=== PATIENT | male | born 1980 | race Caucasian/White ===

== ENCOUNTER 2021-12-29 12:16 | Emergency (ER) | payer OTHER ==
[2021-12-29] MEDS ORDERED: KETOROLAC 15 MG/ML VIAL IVP STA (12:44)
[2021-12-29 12:59] LABS: BILIRUBIN,URINE NEGATIVE (NEGATIVE); GLUCOSE, URINE (UA) NEGATIVE (NEGATIVE); KETONES,URINE (UA) NEGATIVE (NEGATIVE); LEUKOCYTE ESTERASE, URINE NEGATIVE (NEGATIVE); NITRITE,URINE NEGATIVE (NEGATIVE); OCCULT BLOOD,URINE NEGATIVE (NEGATIVE); PROTEIN,URINE NEGATIVE (NEGATIVE); UROBILINOGEN,URINE 0.2 (NORMAL) E.U./dL (NORMAL)
[2021-12-29 13:04] LABS: CLARITY,URINE CLEAR (CLEAR)
[2021-12-29 13:08] LABS: BASOPHILS # (AUTO) 0.1 10^3/uL (0.0-0.1); EOSINOPHILS # (AUTO) 0.2 10^3/uL (0.0-0.7); EOSINOPHILS % (AUTO) 2.4 %; HCT - HEMATOCRIT 41.8 % (42.0-52.0); HGB - HEMOGLOBIN 14.3 g/dL (14.0-18.0); LYMPHOCYTES # (AUTO) 2.6 10^3/uL (1.5-3.5); MEAN CORPUSCULAR HEMOGLOBIN 28.5 pg (27.0-31.0); MEAN CORPUSCULAR HGB CONC 34.2 g/dL (32.0-36.0); MEAN CORPUSCULAR VOLUME 83.4 fL (80.0-94.0); MEAN PLATELET VOLUME 9.1 fL (7.4-11.4); MONOCYTES # (AUTO) 0.6 10^3/uL (0.0-1.0); MONOCYTES % (AUTO) 8.5 %; NEUTROPHILS # (AUTO) 3.4 10^3/uL (1.5-6.6); NEUTROPHILS % (AUTO) 49.2 %; PLT - PLATELET COUNT 237 10^3/uL (130-450); RED BLOOD COUNT 5.01 10^6/uL (4.70-6.10); RED CELL DISTRIBUTION WIDTH 12.6 % (12.0-15.0); WHITE BLOOD COUNT 6.9 x10^3/uL (4.8-10.8)
[2021-12-29 13:19] LABS: ALBUMIN 4.2 g/dL (3.2-5.5); ALBUMIN/GLOBULIN RATIO 1.3 (1.0-2.2); BILIRUBIN,TOTAL 0.3 mg/dL (0.2-1.0); CALCIUM 9.4 mg/dL (8.5-10.3); CREATININE 0.8 mg/dL (0.6-1.2); POTASSIUM 4.1 mmol/L (3.5-5.0); TOTAL PROTEIN 7.5 g/dL (6.7-8.2)
--- NOTE | 2021-12-29 15:10 | CT Report ---
PROCEDURE: Abdomen/Pelvis W INDICATIONS: GENERALIZED LOWER ABD PAIN X2 WEEKS CONTRAST: IV CONTRAST: Optiray 320 ml: 100 PO CONTRAST: *NO PO CONTRAST TECHNIQUE: After the administration of intravenous contrast, 5 mm thick sections acquired from the diaphragms to the symphysis. 5 mm thick coronal and sagittal reformats were acquired. For radiation dose reducti on, the following was used: automated exposure control, adjustment of mA and/or kV according to april ent size. COMPARISON: None. FINDINGS: Image quality: Excellent. ABDOMEN: Lung bases: Lung bases are clear. Heart size is normal. Small hiatal hernia. Solid organs: Liver and spleen are normal in size and enhancement. Mild hepatic steatosis. Gallblad gus is normal. Biliary system is non dilated. Pancreas enhances normally. No adrenal nodules. Kid neys demonstrate normal size and enhancement, without hydronephrosis. Peritoneum and bowel: Bowel loops demonstrate normal wall thickness and caliber. No free fluid or a ir. Nodes and vessels: No retroperitoneal or mesenteric adenopathy by size criteria. Aorta and inferior vena cava are normal in size. Miscellaneous: No ventral hernias. PELVIS: Genitourinary: Bladder wall thickness is normal. Miscellaneous: No inguinal hernias or adenopathy. Bones: No suspicious bony lesions. No vertebral body compression fractures. IMPRESSION: 1. No acute interval abdominal or pelvic abnormalities. 2. Hepatic steatosis. Reviewed by: Shonda Michele MD on 12/29/2021 3:08 PM PDT Approved by: Shonda Michele MD on 12/29/2021 3:08 PM PDT Station ID: [id number]
--- NOTE | 2021-12-29 15:14 | ED Physician Documentation ---
PD HPI ABD PAIN - Stated complaint Stated Complaint: BELLY TENDER/PX - Chief complaint Chief Complaint: Abd Pain - History obtained from History obtained from: Patient - History of Present Illness Timing - onset: How many weeks ago (2) - Additional information Additional information: 41-year-old male with no reported past medical history presents by private veh icle for 2 weeks of lower abdominal pain. Pain is cramping, intermittent, worsens with palpation, occasionally radiates into his testicle. No associated nausea or vomiting. Patient states that he is on the wait list to see a GI doctor because of chronic stomach issues, and he states that Crohn's and ulcerative colitis from his family, however this is different from his chronic stomach issues. Review of Systems Ten Systems: 10 systems reviewed and negative Constitutional: denies: Fever, Chills Cardiac: denies: Chest pain / pressure, Palpitations, Calf pain Respiratory: denies: Dyspnea, Cough, Wheezing GI: reports: Abdominal Pain. denies: Nausea, Vomiting, Constipation, Diarrhea : denies: Dysuria, Testicular pain, Testicular mass PD PAST MEDICAL HISTORY - Past Medical History Past Medical History: No - Present Medications Home Medications: Ambulatory Orders Medication Instructions Recorded Confirmed No Known Home Medications 12/29/21 12/29/21 - Allergies Allergies/Adverse Reactions: Allergies Allergy/AdvReac Type Severity Reaction Status Date / Time No Known Drug Allergies Allergy Verified 12/29/21 12:26 PD ED PE NORMAL - Vitals Vital signs reviewed: Yes - General General: Alert and oriented X 3, No acute distress, Well developed/nourished - HEENT HEENT: Atraumatic, PERRL, EOMI - Cardiac Cardiac: RRR, No murmur, Strong equal pulses - Respiratory Respiratory: No respiratory distress, Clear bilaterally - Abdomen Abdomen: Soft, Non distended, No organomegaly, Other (suprapubic abdominal TTP without rebounr or guarding) - Male Male : 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, Other (normal penis, normal testicles, no hernia, cremasteric reflex intact bilaterally) - Back Back: No CVA TTP, No spinal TTP - Derm Derm: Normal color, Warm and dry, No rash - Extremities Extremities: No deformity, No tenderness to palpate, Normal ROM s pain - Neuro Neuro: Alert and oriented X 3, health director 2-12 intact, No motor deficit, No sensory deficit, Normal speech - Psych Psych: Normal mood, Normal affect Results - Vitals Vitals: Vital Signs - 24 hr 12/29/21 12/29/21 12/29/21 12:26 12:30 14:53 Temperature 36.2 C L 36.5 C 36.5 C Heart Rate 80 80 72 Respiratory 18 18 16 Rate Blood Pressure 142/92 H 142/92 H 140/93 H O2 Saturation 98 98 98 12/29/21 15:23 Temperature Heart Rate 67 Respiratory 19 Rate Blood Pressure 125/80 O2 Saturation 99 Oxygen O2 Source Room air - Labs Labs: Laboratory Tests 12/29/21 12/29/21 12/29/21 12:38 13:00 13:00 WBC 6.9 RBC 5.01 Hgb 14.3 Hct 41.8 L MCV 83.4 MCH 28.5 MCHC 34.2 RDW 12.6 Plt Count 237 MPV 9.1 Neut # (Auto) 3.4 Lymph # (Auto) 2.6 Dade # (Auto) 0.6 Eos # (Auto) 0.2 Baso # (Auto) 0.1 Absolute Nucleated RBC 0.00 Nucleated RBC % 0.0 Sodium 137 Potassium 4.1 Chloride 103 Carbon Dioxide 26 Anion Gap 8.0 BUN 13 Creatinine 0.8 Estimated GFR (MDRD) 108 Glucose 95 Calcium 9.4 Total Bilirubin 0.3 AST 25 ALT 32 Alkaline Phosphatase 59 Total Protein 7.5 Albumin 4.2 Globulin 3.3 Albumin/Globulin Ratio 1.3 Lipase 30 Urine Color YELLOW Urine Clarity CLEAR Urine pH 7.0 Ur Specific [place] 1.010 Urine Protein NEGATIVE Urine Glucose (UA) NEGATIVE Urine Ketones NEGATIVE Urine Occult Blood NEGATIVE Urine Nitrite NEGATIVE Urine Bilirubin NEGATIVE Urine Urobilinogen 0.2 (NORMAL) Ur Leukocyte Esterase NEGATIVE Ur Microscopic Review NOT INDICATED Urine Culture Comments NOT INDICATED PD MEDICAL DECISION MAKING - ED course Complexity details: reviewed results, re-evaluated patient, considered differential, d/w patient ED course: Well-appearing male presenting for 2 weeks of abdominal pain. Abdomen is soft, he does have reproducible tenderness over the lower quadrants of his abdomen, particularly the suprapubic region. Hemodynamically stable, no evidence of hernia or testicular etiology of symptoms. Laboratory work was essentially unremarkable, no contributing cause for his symptoms identified. CT imaging also negative for acute findings, patient reports previous history of appendectomy. Patient was counseled on his lab and imaging findings, emphasized importance of following up with GI as previously scheduled. Patient stated that he would try to call his GI doctor's office to move up his appointment. Departure - Departure Disposition: 01 Home, Self Care Clinical Impression: Abdominal pain Condition: Stable Instructions: Abdominal Pain Comments: I do not know the cause of your abdominal pain, your labs and your imaging today were negative for obvious findings. This means it is even more important that you follow-up with your GI doctor as previously scheduled for your scopes Discharge Date/Time: 12/29/21 15:24
[2021-12-29 15:24] VITALS: BP 125/80
[2021-12-29] MEDS ORDERED: iohexoL-300 100 ML VIAL IVP ONE (15:29)
[2021-12-29] MEDS ORDERED: iohexoL-300 100 ML VIAL ONE (15:50)
== END 2021-12-29 15:24 | disposition home or self-care (01) ==
LOC: ED 12:16
DX: R10.31 Right lower quadrant pain (principal); R10.32 Left lower quadrant pain; K76.0 Fatty (change of) liver, not elsewhere classified; Z90.49 Acquired absence of other specified parts of digestive tract; Z83.79 Family history of other diseases of the digestive system
CPT/HCPCS: 36415; 74177; 80053; 81003; 83690; 85025; 96374; 99284; Q9967; 81001; 87086

== ENCOUNTER 2022-04-19 10:34 | Outpatient (CLI) | payer OTHER ==
--- NOTE | 2022-04-19 11:31 | SLEEP CARE CONSULTATION ---
Information from patient questionnaire entered by Carmel Awad. I have reviewed and concur with the information entered by Carmel Awad. This document represents the service I personally performed and the decisions made by me, Lauryn Garrido ARNP. History of Present Illness Service Date and Time: 04/19/2022 1034 Reason for Visit: New patient Chief Complaint: reports: Unrefreshed sleep, Snoring, Fatigue, Frequent awakenings at night Date of Onset: 5 years Usual bedtime: between 8-10pm Time it takes to fall asleep: 20min or so Snores at night: Yes Observed to quit breathing while asleep: No Sleeps alone due to snoring: Yes Number of times waking at night: 3-6 Reasons for waking at night: reports: Gasping for air (wakes up feeling like he can't get a full breath with panic attacks), Other (unknown reason, noise, not sure sometimes panic attacks). denies: Choking, Snoring Toss, Turn, or Twitch while sleeping: Yes Recalls having dreams: Yes Usually gets out of bed at: 5am; weekends [id number] AM Feels refreshed in the morning: No Morning headache: No Sleepy or fatigued during the day: Yes Ever fallen asleep while driving: No Takes day naps: Yes (tries to get one once a day, but does not always happen; for 2 hours) Dreams during day naps: No Prior sleep studies: No Additional HPI information: I had the pleasure of seeing NORI TADEO today regarding the possibility of him having a sleep disorder. His current complaints are fatigue, frequent night awakenings, unrefreshed sleep and snoring. He states that he sleeps separate rooms from his because he is getting up frequently at night and this disturbs her sleep. She has told him that he snores loudly. He normally wakes up feeling tired in the morning. He states he has had times when he wakes up feeling like he is not getting enough air. This only seems to happen when he wakes up in panic attack and subsides after taking his hydroxyzine. He states most of the time he is not sure what is waking him up. He is tired throughout the day and tries to take a nap every day. His does not like him napping though, so he does not always get one. He also has six children with multiple activities which keeps him busy. He states his sister has sleep apnea and uses a "mask". - Parasomnia Symptoms Ever been unable to move upon waking from sleep: No Walks in sleep: No Talks in sleep: No Ever acted out dreams in sleep: No Ever felt weak in the knees when startled or emotional: No Bothered by creepy, crawly, restless sensations in legs: No Problems with memory or concentration: Yes (concentration is hard; thinks of a "million" things at night) Subjective Initial [place]ra Sleepiness Scale score: 12 (04/19/22) Past Medical History Past Medical History: reports: Anxiety, Depression, Other (Celiac 1 trait, gluten sensitive; heartburn (getting upper endoscopy in May)) Social History 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 Patient is and lives in [place]. Have you smoked in the past 12 months: No Years of smokin (socially) Quit date: 2008 Alcohol use: Yes Alcohol amount and frequency: 5 drinks, 2x/week Caffeine use: No Family History Family history of sleep disordered breathing: Yes Family Hx Sleep Apnea: Father: Snoring, Sibling: Snoring, Sleep apnea - Treated Allergies and Home Medications Known drug allergies: No Drug allergies reviewed: Yes (NKDA) Home medication list reviewed: Yes Allergy and home medication list: Medications: Lexapro 20 mg Hydroxyzine, prn Review of Systems Weight gain over past 5 years: 45 Weight loss over past 5 years: 0 Cardiovascular: denies: high blood pressure Respiratory: reports: shortness of breath Gastrointestinal: reports: heartburn, diarrhea, abdominal pain Neurological: denies: headaches Ear/Nose/Throat: reports: dry mouth/throat (wakes up with couple times a week), wisdom teeth removed. denies: tonsillectomy Endocrine: reports: increased appetite. denies: thyroid disease Physical Exam Vital signs obtained and entered by: George AWAD MA Blood Pressure: 120/68 (right arm ) Cuff size: regular Heart Rate: 96 O2 Saturation: 65 Height: 5 ft 4 in Weight: 237 lb Body Mass Index: 40.6 BMI Classification: Morbidly Obese Neck circumference: 19 (inches) Nostrils: patent to airflow Mouth and throat: narrow oropharynx Soft palate: long Hard palate: normal Uvula: normal Uvula visualization: 25% Mallampati Class III Tongue: enlarged in size with teeth engle on lateral edges Tonsils: 1+ Neck: normal w/o lymphadenopathy or thyromegaly Heart: regular rate and rhythm Lungs: clear bilaterally Impression and Plan 1. Suspected Obstructive Sleep Apnea-Hypopnea Syndrome, as suggested by a history of loud and irregular snoring, observed cessation of breath while asleep, gasping or choking in sleep, frequent awakening during the night, unrefreshed sleep, cognitive impairment, and excessive daytime sleepiness. Narrow oropharynx and obesity are common predisposing factors for obstructive sleep apnea-hypopnea syndrome. I recommend proceeding to polysomnography to confirm the diagnosis and to assess severity. If the patient has significant sleep disordered breathing, a manual CPAP titration study will also be performed to find the optimal treatment pressure. I informed the patient of what the sleep studies involve and after some discussion, obtained agreement to proceed. The pathophysiology of obstructive sleep apnea-hypopnea syndrome was discussed with the patient and health risks of cardiovascular and cerebrovascular disease if not treated. Risks of drowsy driving discussed in detail and patient advised to avoid long distance driving and to rod puller at the first sign of drowsiness. Patient agreed to plan. * Schedule polysomnography * Avoid long distance driving or driving when feeling sleepy. * Avoid alcohol, sedative and muscle relaxant around bedtime. * Attempt to lose weight. * Review instructions provided by trained office staff on how to prepare for the sleep study. * Return for follow-up after sleep study completed. Counseling Topics: Weight loss health impact Visit Type: In Office Time Spent with Patient (minutes): 31 Provider Statement: I spent 100% of the Face to Face Visit with the patient with greater than 50% spent counseling the patient and coordination of care.
[2022-04-19 11:32] VITALS: BP 120/68
== END 2022-04-19 10:35 | disposition home or self-care (01) ==
LOC: SC 10:34
PROVIDERS: ATTEND Nurse Practitioner Family
DX: R06.83 Snoring (principal); G47.8 Other sleep disorders; G47.10 Hypersomnia, unspecified; R53.83 Other fatigue; F32.A Depression, unspecified; E66.01 Morbid (severe) obesity due to excess calories; Z68.41 Body mass index [BMI] 40.0-44.9, adult; Z87.891 Personal history of nicotine dependence
CPT/HCPCS: 99203; 99212

== ENCOUNTER 2022-05-07 14:19 | Outpatient (CLI) | payer OTHER | END 2022-05-07 14:20 | disposition home or self-care (01) | LOC: SC 14:19 | PROVIDERS: ATTEND Nurse Practitioner Family | DX: F32.A Depression, unspecified (principal); G47.33 Obstructive sleep apnea (adult) (pediatric); R09.02 Hypoxemia | CPT/HCPCS: 95806 ==

== ENCOUNTER 2022-05-17 10:37 | Outpatient (CLI) | payer OTHER ==
[2022-05-17 11:29] VITALS: BP 118/68
--- NOTE | 2022-05-17 11:29 | SLEEP CARE CONSULTATION ---
Information from patient questionnaire entered by Cecy Crowley. I have reviewed and concur with the information entered by Cecy Crowley. This document represents the service I personally performed and the decisions made by , Lauryn Garrido ARNP. History of Present Illness Service Date and Time: 05/17/2022 1037 Initial [place] Sleepiness Scale score: 12 (04/19/22) Current Redford Sleepiness Scale score: 11 (05/17/22) Additional HPI information: NORI TADEO returns for follow up and results of the recently performed home sleep study. I explained the pathophysiology behind obstructive sleep apnea. We then spent quite a bit of time discussing different treatment options. For mild obstructive sleep apnea, surgery and oral appliance are alternatives to nasal CPAP therapy but in moderate or severe cases, nasal CPAP is the most effective and reliable treatment. Because apnea is primarily in supine position, then positional management therapy could be effective. Methods discussed such as positioning with pillows to prevent supine sleep. I reviewed the impact of weight changes on sleep apnea and strongly recommended losing weight. After some discussion, the patient opted to go with the nasal CPAP therapy. Nasal autoCPAP set at 4-15 cmH20 will be ordered with rationale explained. A manual titration study will be ordered if unable to find optimal pressure with office adjustments. I explained how CPAP machine works and what to expect when using the machine. Using CPAP every night in order to get used to it was emphasized. Patient advised to put CPAP mask on before getting into bed so as not to fall asleep wit hout CPAP. To assist acclimation to CPAP use, it could also be used for a short time during day while reading or watching TV. The patient was instructed to call the CPAP supplier to discuss any mechanical problem that may occur. If the mask given is uncomfortable or is difficult to keep on through the night even with adjustment, contact the CPAP supplier as many will replace with another mask sty le if notified before 30 days. If snoring or perceives is not getting enough air or too much air from the machine, notify this office. Patient counseled not drink alcohol less than 4 hours before bedtime as it can increase snoring and apnea. Patient was cautioned about risks of drowsy driving until sleepiness symptoms resolve. Patient denies drowsy driving. Sleep Study - Results Type of Sleep Study: Home sleep study (COMPLETED 05/07/22) Prior sleep studies: No Polysomnography/Home Sleep Study results: Physician Impression: The quality of the study is good. The length of the study is adequate (> 240 minutes). Please also see the tabulated and graphic data. 1. Obstructive Sleep Apnea-Hypopnea (ICD-10 G47.33), mild, with an AHI of 13.3/hr and comfort SaO2 of 78%. During the study, the patient had 27 apneas (27 obstructive, 0 central, 0 mixed) and 72 hypopneas. The longest episode lasted 69.5 seconds. The respiratory events occurred more frequently during supine sleep (supine AHI was 16.1 and non-supine, 7.85). 2. Hypoxemia (ICD-10 R09.02), moderate, with the lowest oxygen saturation of 78 % and 2.6 minutes with SaO2 under 90%. Baseline oxygen saturation was normal (Average oxygen saturation was 94%). Allergies and Home Medications Known drug allergies: No Drug allergies reviewed: Yes Home medication list reviewed: Yes (no changes) Review of Systems Review of systems same as previous: Yes (no changes) Physical Exam Vital signs obtained and entered by: CECY Ramirez MA Blood Pressure: 118/68 (LEFT ARM ) Cuff size: regular Heart Rate: 73 O2 Saturation: 97 Height: 5 ft 4 in Weight: 232 lb 12.8 oz Body Mass Index: 39.9 BMI Classification: Obese Impression and Plan 1. Obstructive Sleep Apnea-Hypopnea Syndrome, mild, with lowest oxygen saturation of 78%. Obviously this is the cause of the patients symptoms of unrefreshed sleep, and excessive daytime sleepiness. Positive pressure therapy could benefit anxiety and depression. As mentioned above, the patient will be started on nasal autoCPAP therapy with pressure set at 4-15 cmH2O. Compliance guidelines also reviewed. A copy of compliance guidelines will be given for reference at check out. Because the apnea is more severe supine, I instructed to avoid sleeping supine using pillow positioning until able to start CPAP use. * Nasal auto CPAP therapy, pressure at 4-15 cm H2O. * Attempt to lose weight. * Avoid alcohol consumption near bedtime. * Avoid supine sleep until using CPAP. * The patient is again cautioned about driving until sleepiness completely resolves. * Return one month after CPAP obtained. I will assess response to therapy and compliance at that time. Counseling Topics: Weight loss health impact Visit Type: In Office Time Spent with Patient (minutes): 20 Provider Statement: I spent 100% of the Face to Face Visit with the patient with greater than 50% spent counseling the patient and coordination of care.
== END 2022-05-17 10:38 | disposition home or self-care (01) ==
LOC: SC 10:37
PROVIDERS: ATTEND Nurse Practitioner Family
DX: G47.33 Obstructive sleep apnea (adult) (pediatric) (principal); E66.9 Obesity, unspecified; Z68.39 Body mass index [BMI] 39.0-39.9, adult
CPT/HCPCS: 99212; 99213

== ENCOUNTER 2022-10-17 09:16 | Outpatient (CLI) | payer OTHER ==
--- NOTE | 2022-10-17 09:43 | Sleep Patient Instructions ---
Sleep Center Visit Summary - Patient Visit Information Reason for Visit: First Compliance followup for PAP therapy - Patient Instructions Additional Instructions: You were here for follow up of CPAP therapy. You will be continued on CPAP therapy with pressure at 9-10 cmH2O. Please let us know if the pressure change is uncomfortable and we can make further adjustments of the pressure. You should follow up with sleep care in 6 months. You may contact us sooner for any questions or concerns. - Clinic Information Contact: [facility] [address] [place] [id number] [email or web address] T: [phone]
[2022-10-17 09:47] VITALS: BP 128/72
--- NOTE | 2022-10-17 09:47 | SLEEP CARE CONSULTATION ---
Information from patient questionnaire entered by Stan Crowley. I have reviewed and concur with the information entered by Stan Crowley. This document represents the service I personally performed and the decisions made by , Lauryn Garrido ARNP. History of Present Illness Service Date and Time: 10/17/2022 0916 Previous diagnosis: Mild, Obstructive Sleep Apnea-Hypopnea Syndrome AHI: 13.3 Reason for follow up: first compliance Equipment type: CPAP (Resmed 11, s/u 07/2022) Equipment obtained from: Other ([facility]) Mask style: Nasal (over the nose) Backup mask available: No (will keep old mask when replaced) Last cushion change: 3 weeks Prior sleep studies: No Type of Sleep Study: Home sleep study (COMPLETED 05/07/22) HPI additional information: NORI TADEO was diagnosed to have mild, AHI 13.3, obstructive sleep apnea- hypopnea syndrome and returned today for CPAP therapy first compliance follow- up. Sleep Study - Results Type of Sleep Study: Home sleep study (COMPLETED 05/07/22) Prior sleep studies: No CPAP Compliance Data - Data Reviewed with Patient Average duration of nightly device use: 5 hours 24 mins Compliance rate %: 50 ( days used) Current pressure setting (cmH2O): 4-15 (median 6.9, avg 9.1, max 10.6) Average residual AHI: 1.2 Central apnea: 0 Obstructive apnea: 0.9 Hypopnea: 0.3 Average large leak: 0.8 L/min Subjective Patient concerns: reports: condensation in mask/hose. denies: aerophagia, mask discomfort, mask leak noise, nasal congestion, dry mouth, nose, throat, epistaxis Observed to snore while using device: No Current pressure setting perceived as: comfortable On therapy, patient: reports: sleeping better, awakening more refreshed, being more awake and alert during the day, more rested overall. denies: drowsiness while driving Initial [place] Sleepiness Scale score: 12 (04/19/22) Current [place] Sleepiness Scale score: 13 (10/17/22) Allergies and Home Medications Known drug allergies: No Drug allergies reviewed: Yes Home medication list reviewed: Yes (Pantoprazole; Hydroxyzine) Allergy and home medication list: Allergies No Known Drug Allergies Allergy (Verified 10/16/22 13:06) Review of Systems Review of systems same as previous: No (Barretts Esophagitis; Schotsky ring; GERD) Physical Exam Vital signs obtained and entered by: STAN Ramirez MA Blood Pressure: 128/72 (LEFT ARM) Cuff size: regular Heart Rate: 69 O2 Saturation: 97 Height: 5 ft 4 in Weight: 227 lb 9.6 oz Body Mass Index: 39.0 BMI Classification: Obese Impression and Plan 1. Obstructive Sleep Apnea-Hypopnea Syndrome, mild, with fair treatment compliance and good apnea control. On CPAP therapy, the patient has better sleep quality and is more rested overall. He states he is getting more used to it and has been trying to use that nightly. He has times that he will fall asleep without the mask on and his is trying to help him remember. He has significant improvement of his sleep apnea with average pressure used 9.1 cm H2O. The patients pressure will be changed to autoCPAP 9-10 cmH20 to reflect pressure being used. Patient advised to contact me if pressure change is uncomfortable so that it can be adjusted. Goals for apnea control discussed. 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 I will have him follow-up in the office once he gets back into town. Patient's apnea severity and rationale for treatment to reduce apnea, improve sleep quality and reduce cardiovascular and cerebrovascular events was reviewed. I also reviewed the benefit of consistent device use of CPAP for depression/anxiety. 2. Obesity, unspecified. Currently patients BMI is 39. Obesity increases the risk of apnea, CPAP pressure requirements and overall health risks especially cardiovascular and diabetes. Thus patient is advised to lose weight. * Change auto CPAP pressure to 9-10 cmH2O * Notify me if snoring with mask or feeling that the pressure is too much or too little * Attempt to lose weight * Call this office if any problems using CPAP * Return for follow up in, 6 months or sooner if concerns arise Counseling Topics: Spare mask, Weight loss health impact Visit Type: In Office Time Spent with Patient (minutes): 22 Provider Statement: I spent 100% of the Face to Face Visit with the patient with greater than 50% spent counseling the patient and coordination of care.
== END 2022-10-17 09:17 | disposition home or self-care (01) ==
LOC: SC 09:16
PROVIDERS: ATTEND Nurse Practitioner Family
DX: G47.33 Obstructive sleep apnea (adult) (pediatric) (principal); E66.9 Obesity, unspecified; Z68.39 Body mass index [BMI] 39.0-39.9, adult
CPT/HCPCS: 99212; 99213

== ENCOUNTER 2023-04-21 19:24 | Emergency (ER) | payer OTHER ==
--- NOTE | 2023-04-22 00:40 | ED Physician Documentation ---
History of Present Illness - Stated complaint Stated Complaint: C+,SOA - Chief complaint Chief Complaint: General - History obtained from History obtained from: Patient - Additonal information Additional information: HPI from patient. Since last week, patient has been having fatigue, nonproductive cough. He tested positive for COVID on (four days ago). He was prescribed Tessalon Perles as well as albuterol MDI. He has not had any noticeable improvement with the Tessalon Perles, and he has not used the albuterol MDI yet. Patient says his symptoms had mildly improved, enough so that he returned to work today. However, he had difficulty getting through the day due to the fatigue, frequent coughing which was worsening today, and dyspnea on exertion. Upon getting home from work tonight, he continued to have significant fatigue and dyspnea which was noticeably worse with exertion. He also developed anterior chest heaviness across mid/upper chest this evening. Denies fevers Review of Systems Constitutional: reports: Myalgias, Fatigue. denies: Fever, Chills, Sweats Cardiac: reports: Chest pain / pressure. denies: Palpitations Respiratory: reports: Dyspnea, Cough. denies: Hemoptysis GI: reports: Reviewed and negative Neurologic: denies: Headache PD PAST MEDICAL HISTORY - Past Medical History Past Medical History: Yes Cardiovascular: None Respiratory: None Neuro: None Endocrine/Autoimmune: None GI: Other : None HEENT: None Psych: Depression, Anxiety Musculoskeletal: None Derm: None - Past Surgical History Past Surgical History: Yes General: Appendectomy - Present Medications Home Medications: Ambulatory Orders Medication Instructions Recorded Confirmed hydrOXYzine HCL [Hydroxyzine HCl] See Rx Instructions .ROUTE .COMPLEX 04/19/22 10/17/22 Pantoprazole [Protonix] See Rx Instructions .ROUTE .COMPLEX 10/17/22 10/17/22 predniSONE [Deltasone] 40 mg PO DAILY 4 Days #8 tablet 04/22/23 - Allergies Allergies/Adverse Reactions: Allergies Allergy/AdvReac Type Severity Reaction Status Date / Time No Known Drug Allergies Allergy Verified 04/21/23 19:32 - Social History Does the pt smoke?: No Smoking Status: Never smoker Does the pt drink ETOH?: No Does the pt have substance abuse?: No - Immunizations Immunizations are current?: Yes PD ED PE NORMAL - Vitals Vital signs reviewed: Yes - General General: Alert and oriented X 3, No acute distress, Well developed/nourished, Other (frequent dry cough) - HEENT HEENT: Moist mucous membranes - Neck Neck: Supple, no meningeal sign - Cardiac Cardiac: RRR, No murmur - Respiratory Respiratory: No respiratory distress PD ED PE EXPANDED - Respiratory Respiratory: Wheezing (bilateral end-expiratory wheezing) Results - Vitals Vitals: Vital Signs - 24 hr 04/21/23 04/22/23 04/22/23 19:32 02:08 02:30 Temperature 36.8 C Heart Rate 79 66 Respiratory 16 20 20 Rate Blood Pressure 140/90 H O2 Saturation 96 91 L 04/22/23 04/22/23 02:43 03:55 Temperature Heart Rate 61 70 Respiratory 20 18 Rate Blood Pressure 140/98 H 134/84 H O2 Saturation 98 96 Oxygen O2 Source Room air - EKG (time done) No standard instances EKG releavant findings:: EKG personally interpreted by author of this note. Relevant findings are: Rate: Rate (enter#) (64) Rhythm: NSR [place]: Normal Intervals: Normal IN QRS: Normal Ischemia: Normal ST segments, T wave inversion (III (isolated)) - Labs Labs: Laboratory Tests 04/21/23 04/22/23 04/22/23 23:22 01:35 01:35 WBC 9.0 RBC 4.89 Hgb 13.7 L Hct 41.1 L MCV 84.0 MCH 28.0 MCHC 33.3 RDW 11.9 L Plt Count 257 MPV 8.9 Neut # (Auto) 4.3 Lymph # (Auto) 3.5 [place] # (Auto) 0.6 Eos # (Auto) 0.3 Baso # (Auto) 0.1 Absolute Nucleated RBC 0.00 Nucleated RBC % 0.0 Sodium 136 Potassium 3.7 Chloride 102 Carbon Dioxide 25 Anion Gap 9.0 BUN 14 Creatinine 0.9 Estimated GFR (MDRD) 93 Glucose 98 Calcium 9.4 Troponin I High Sens 2.7 Nasal Adenovirus (PCR) NOT DETECTED Nasal B. parapertussis DNA (PCR) NOT DETECTED Nasal Coronavir 229E PCR NOT DETECTED Nasal Coronavir HKU1 PCR NOT DETECTED Nasal Coronavir NL63 PCR NOT DETECTED Nasal Coronavir OC43 PCR NOT DETECTED Nasal Enterovir/Rhinovir PCR NOT DETECTED Nasal Influenza B PCR NOT DETECTED Nasal Influenza A PCR NOT DETECTED Nasal Parainfluen 1 PCR NOT DETECTED Nasal Parainfluen 2 PCR NOT DETECTED Nasal Parainfluen 3 PCR NOT DETECTED Nasal Parainfluen 4 PCR NOT DETECTED Nasal RSV (PCR) NOT DETECTED Nasal B.pertussis DNA PCR NOT DETECTED Nasal C.pneumoniae (PCR) NOT DETECTED [place] Human Metapneumo PCR NOT DETECTED Nasal M.pneumoniae (PCR) NOT DETECTED Nasal SARS-CoV-2 (PCR) DETECTED A - Rads (name of study) chest xray Relevant Findings:: Prelim report reviewed, See rad report PD Medical Decision Making - ED course Complexity details: reviewed results, re-evaluated patient, considered differential, d/w patient ED course: No concerning findings on CBC. BMP is normal as is high-sensitivity troponin. No abnormalities on chest x-ray. Respiratory PCR panel tests positive for COVID (as expected); the remainder of the viruses tested on this panel test negative. Patient is given 2 puffs off of an albuterol MDI (patient did not bring his albuterol MDI with him). He says he does not feel any significant difference after this medication. However, on reevaluation, his lungs are now clear to auscultation bilaterally; there is no longer any wheezing including throughout expiratory phase. Pulse ox on room air ranges from 92%-96%. He is not in any respiratory distress and is speaking in full sentences. Results discussed with patient, return precautions reviewed. He is given 40 mg prednisone p.o., and I have electronically submitted a prescription to the [facility] pharmacy in [place] for prednisone 40 mg daily x 4 days. Departure - Departure Disposition: 01 Home, Self Care Clinical Impression: Bronchitis with bronchospasm Condition: Good Instructions: ED Bronchitis Asthmatic Prescriptions: predniSONE [Deltasone] 40 mg PO DAILY 4 Days #8 tablet Comments: There were no concerning findings on tonight's blood tests. The nasal swab is positive for COVID (as expected); fortunately, you tested negative for all the other viruses tested on this panel (including influenza, RSV, and several other viruses). The chest x-ray was normal; there is no evidence of pneumonia on the x-rays. Your symptoms are likely the result of ongoing COVID infection with inflammation of your upper airway passages (bronchitis) which is causing an asthmatic-like response (bronchospasm). This response leads to shortness of breath, wheezing, and frequent coughing. You were given the first dose of a steroid (prednisone) in the emergency department, and I have electronically submitted a prescription for 4 more days of this medication to the [facility] pharmacy in [place]. The steroid is being prescribed for its anti-inflammatory properties; this should gradually improve your breathing and decrease the coughing and wheezing. Additionally, use the albuterol inhaler every 4 hours as needed for shortness of breath, wheezing, or frequent coughing. Forms: Activity restrictions Discharge Date/Time: 04/22/23 03:56
[2023-04-22] MEDS ORDERED: ALBUTEROL NEB 2.5 MG/3 ML INH STA (01:25)
[2023-04-22 01:44] LABS: BASOPHILS # (AUTO) 0.1 10^3/uL (0.0-0.1); BASOPHILS % (AUTO) 0.9 %; EOSINOPHILS # (AUTO) 0.3 10^3/uL (0.0-0.7); EOSINOPHILS % (AUTO) 3.6 %; HCT - HEMATOCRIT 41.1 % (42.0-52.0); HGB - HEMOGLOBIN 13.7 g/dL (14.0-18.0); LYMPHOCYTES # (AUTO) 3.5 10^3/uL (1.5-3.5); LYMPHOCYTES % (AUTO) 39.3 %; MEAN CORPUSCULAR HGB CONC 33.3 g/dL (32.0-36.0); MEAN PLATELET VOLUME 8.9 fL (7.4-11.4); MONOCYTES # (AUTO) 0.6 10^3/uL (0.0-1.0); NEUTROPHILS # (AUTO) 4.3 10^3/uL (1.5-6.6); NEUTROPHILS % (AUTO) 47.9 %; PLT - PLATELET COUNT 257 10^3/uL (130-450); RED BLOOD COUNT 4.89 10^6/uL (4.70-6.10); RED CELL DISTRIBUTION WIDTH 11.9 % (12.0-15.0)
[2023-04-22 01:48] LABS: B. PARAPERTUSSIS- RESP PCR PAN NOT DETECTED; B. PERTUSSIS- RESP PCR PANEL NOT DETECTED; C. PNEUMONIAE- RESP PCR PANEL NOT DETECTED; CORONAVIRUS 229E-RESP PCR NOT DETECTED; CORONAVIRUS HKU1-RESP PCR NOT DETECTED; CORONAVIRUS NL63-RESP PCR NOT DETECTED; CORONAVIRUS OC43-RESP PCR NOT DETECTED; HUMAN METAPNEUMOVIRUS NOT DETECTED; INFLUENZA A- RESP PCR PANEL NOT DETECTED; INFLUENZA B - RESP PCR PANEL NOT DETECTED; M. PNEUMONIAE- RESP PCR PANEL NOT DETECTED; PARAINFLUENZA VIRUS 1 NOT DETECTED; PARAINFLUENZA VIRUS 2 NOT DETECTED; PARAINFLUENZA VIRUS 3 NOT DETECTED; PARAINFLUENZA VIRUS 4 NOT DETECTED; RHINOVIRUS/ENTEROVIRUS NOT DETECTED; RSV- RESP PCR PANEL NOT DETECTED; SARS-CoV-2 -RESP PCR PANEL DETECTED
--- NOTE | 2023-04-22 01:52 | XRAY Report ---
PROCEDURE: Chest 2V INDICATIONS: cough, dyspnea TECHNIQUE: 2 views of the chest were acquired. COMPARISON: None. FINDINGS: Surgical changes and devices: None. Lungs and pleura: No pleural effusions or pneumothorax. Lungs are clear. Mediastinum: Mediastinal contours appear normal. Heart size is normal. Bones and chest wall: No suspicious bony lesions. Overlying soft tissues appear unremarkable. IMPRESSION: No acute cardiopulmonary process. Reviewed by: Kade Maher MD on 04/22/2023 1:51 AM [facility] Approved by: Kade Maher MD on 04/22/2023 1:51 AM [facility] Station ID: [id number]
[2023-04-22 02:04] LABS: TROPONIN I HIGH SENSITIVITY 2.7 ng/L (2.3-19.7)
[2023-04-22 02:20] LABS: CALCIUM 9.4 mg/dL (8.5-10.3); CREATININE 0.9 mg/dL (0.6-1.3); POTASSIUM 3.7 mmol/L (3.5-4.5)
[2023-04-22] MEDS ORDERED: predniSONE 20 MG TABLET PO STA (03:21)
[2023-04-22 04:03] VITALS: BP 134/84; O2SAT 96
== END 2023-04-22 03:56 | disposition home or self-care (01) ==
LOC: ED 19:24
DX: J40 Bronchitis, not specified as acute or chronic (principal); Z11.52 Encounter for screening for COVID-19
CPT/HCPCS: 36415; 71046; 80048; 84484; 85025; 87633; 93005; 94640; 94664; 99284; J7512